=== PATIENT | female | born 1990 | race Hispanic/Latino ===

== ENCOUNTER 2017-06-05 12:24 | Emergency (ER) | payer OTHER, BC ==
[~2017-06-05] VITALS: Ht 172.7 cm; Wt 103.5 kg
[~2017-06-05 12:24] MED LIST: IRON325 M1 PO; PRENATAL TABLE1 EAC3 PO
[2017-06-05] MEDS ORDERED: FLEXERIL10 MG PO (15:34)
[2017-06-05] MEDS ORDERED: MOTRIN600 MG PO (15:34)
[2017-06-05 15:46] VITALS: BP 122/86
== END 2017-06-05 15:47 | disposition home or self-care (01) ==
LOC: EME 12:24
DX: S29.012A Strain of muscle and tendon of back wall of thorax, initial encounter (principal); S60.511A Abrasion of right hand, initial encounter; S90.811A Abrasion, right foot, initial encounter; V40.0XXA Car driver injured in collision with pedestrian or animal in nontraffic accident, initial encounter; Y92.410 Unspecified street and highway as the place of occurrence of the external cause
CPT/HCPCS: 99281; 99284